=== PATIENT | female | born 1975 | race Caucasian/White ===

== ENCOUNTER 2016-12-08 20:54 | Emergency (ER) | payer MEDICAID, OTHER ==
[~2016-12-08] VITALS: Ht 170.2 cm; Wt 99.8 kg
[~2016-12-08 20:54] MED LIST: CIPR500T78 PO; DICY20TA33 PO; DIPH25CA79 PO; HYDR-1231 PO; IBUP-1780 PO; LORA10TA76 PO; NAPR-243 PO; ONDA8TAB13 PO; OXYC-12 PO; OXYC-197 PO; PHEN200T27 PO
[2016-12-08] MEDS ORDERED: fentaNYL INJECTION 100 MCG/2 ML AMP IVP STA (21:47)
[2016-12-08] MEDS ORDERED: NS IV 1000 ML 1,000 ML IV ONE (21:47)
--- NOTE | 2016-12-08 21:47 | ED Abdominal Pain ---
General Chief Complaint: General Problems/Pain Stated Complaint: CRAMPING,ABD PAIN,RECTAL BLEEDING;HAND PAIN Nursing Triage Note: PT REPORTS SHE HAS BEEN HAVING DIARRHEA WITH BLOOD IN HER STOOLS. SHE ALSO C/O ABD CRAMPING. SHE ALSO STATES SHE WAS MOVING LAST NIGHT AND DROPPED A JAR OF CHANGE ON HER R HAND AND IS C/O R HAND PAIN. Sepsis Screen: No Definite Risk Source of Information: Patient Exam Limitations: No Limitations History of Present Illness Time Seen By Provider: 21:41 Initial Comments Patient presents ER with chief complaint of left lower quadrant abdominal pain and black stools that started today around 6:00 in the afternoon. She then had some bright red blood on tissue when she was wiping. She is not sure she has a history of hemorrhoids. She has had colonoscopy in the past where she had a polyp but denies knowing of any diverticulosis. 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 She also has dropped a jar of change on her right hand and having some swelling tenderness and difficult to moving her fingers. She took half of a hydrocodone at home but this did not help much with her pain. She denies any shortness of breath chest pain, falls, weakness. She is having a little nausea however. She states she took one dose of Pepto-Bismol approximately 2 hours after her diarrhea started this was after her diarrhea was black. Allergies and Home Medications Allergies Coded Allergies: codeine (Unverified Allergy, Severe, 01/11/16) FACIAL SWELLING morphine (Unverified Allergy, Severe, 01/11/16) FACIAL SWELLING Sulfa (Sulfonamide Antibiotics) (Unverified Allergy, Mild, 01/11/16) NAUSEA/VOMITING latex (Verified Allergy, Unknown, 07/15/14) sulfamethoxazole (Unverified Allergy, Unknown, 09/08/15) trimethoprim (Unverified Allergy, Unknown, 09/08/15) Home Medications Ciprofloxacin HCl 500 Mg Tablet, 500 MG PO BID, #20 Ref 0 Prescribed by: VILMA ELIZABETH on 07/15/14 1950 Dicyclomine HCl 20 Mg Tablet, 20 MG PO TID, #15 Ref 0 Prescribed by: VILMA ELIZABETH on 08/11/15 1905 Diphenhydramine HCl 25 Mg Capsule, 25-50 MG PO HS, (Reported) Hydrocodone Bit/Acetaminophen 1 Tab Tablet, 1-2 TAB PO Q6H PRN for PAIN, #15 Prescribed by: YOLANDE STEELE on 12/28/13 2211 Hydrocodone/Acetaminophen 1 Each Tablet, 1 EACH PO Q6H PRN for BREAKTHROUGH PAIN , #30 Ref 0 Prescribed by: LOW CASE on 12/08/16 2330 Ibuprofen 800 Mg Tablet, 800 MG PO Q8H PRN for PAIN, (Reported) Loratadine 10 Mg Tablet, 10 MG PO DAILY, (Reported) Naproxen 500 Mg Tablet, 1 EACH PO TID PRN for PAIN, #20 Ref 0 FOR PAIN Prescribed by: VILMA ELIZABETH on 07/15/141949 Ondansetron 8 Mg Tab.rapdis, 8 MG PO Q6H PRN for NAUSEA/VOMITING, #10 Ref 0 Prescribed by: VILMA ELIZABETH on 07/15/141949 Ondansetron 8 Mg Tab.rapdis, 8 MG PO Q6H PRN for NAUSEA/VOMITING, #10 Ref 0 Prescribed by: VILMA ELIZABETH on 08/11/15 185 Ondansetron 4 Mg Tab.rapdis, 4 MG PO Q6H PRN for NAUSEA/VOMITING-1ST LINE for 14 Days, #20 Ref 0 Prescribed by: LOW CASE on 12/08/16 2330 Oxycodone HCl/Acetaminophen 1 Each Tablet, 1 EACH PO Q4H PRN for PAIN, (Reported ) Phenazopyridine Hcl 200 Mg Tablet, 1 EACH PO TID PRN for SPASMS, #30 Ref 1 Prescribed by: VILMA ELIZABETH on 07/15/141949 Review of Systems Constitutional: No chills, No diaphoresis, No fever, No malaise Respiratory: Denies Cough, Denies Shortness of Air Cardiovascular: Denies Chest Pain, Denies Irregular Heart Rate Gastrointestinal: See HPI, Abdominal Pain, Diarrhea, Nausea, Denies Vomiting Genitourinary: Denies Burning, Denies Discharge Musculoskeletal: No back pain, No joint pain Skin: No pruritus, No rash Psychiatric/Neurological: Denies Headache, Denies Numbness Past Aaoihcv-Ynnjyl-Utmwwd Hx Patient Social History Alcohol Use: Denies Use Recreational Drug Use: No Smoking Status: Never a Smoker 2nd Hand Smoke Exposure: No Recent Foreign Travel: No Contact w/Someone Who Travel: No Recent Infectious Disease Expo: No Recent Hopitalizations: No Immunizations Up To Date Date of Influenza Vaccine: Feb 04, 2014 Seasonal Allergies Seasonal Allergies: No Surgeries HX Surgeries: Yes (TORSION LEFT OVARY REMOVED, RIGHT OVARIAN CYST) Surgeries: Appendectomy, Gallbladder, Oophorectomy Respiratory Hx Respiratory Disorders: No Cardiovascular Hx Cardiac Disorders: No Neurological Hx Neurological Disorders: No Reproductive System Hx Reproductive Disorders: Yes (TORSION OVARY LEFT REMOVED) Female Reproductive Disorders: Endometriosis, Ovarian Cyst Genitourinary Hx Genitourinary Disorders: Yes Genitourinary Disorders: Kidney Stones Gastrointestinal Hx Gastrointestinal Disorders: No Musculoskeletal Hx Musculoskeletal Disorders: No Endocrine Hx Endocrine Disorders: No HEENT HX ENT Disorders: No Cancer Hx Cancer: No Psychosocial Hx Psychiatric Problems: No Integumentary HX Skin/Integumentary Disorder: No Blood Transfusions Hx Blood Disorders: No Adverse Reaction to a Blood Tr: No Family Medical History Significant Family History: No Pertinent Family Hx Physical Exam Vital Signs VS - Last 72 Hours, by Label 12/08/16 21:29 Temp 97.2 Pulse 90 Resp 16 B/P (MAP) 145/86 Pulse Ox 98 O2 Delivery Room Air Capillary Refill : Less Than 3 Seconds General Appearance: WD/WN, mild distress HEENT: PERRL/EOMI, pharynx normal Respiratory: lungs clear, normal breath sounds Cardiovascular: normal peripheral pulses, regular rate, rhythm, no edema Peripheral Pulses: 2+ Dorsalis Pedis (R), 2+ Left Dors-Pedis (L) Gastrointestinal: normal bowel sounds, soft, no organomegaly, no pulsatile mass , tenderness (left side especially left lower quadrant) Rectal: normal exam, normal rectal tone, black stool, No blood streaked stool Extremities: normal inspection, no pedal edema, no calf tenderness, normal capillary refill, swelling (right hand with mild limitation to flexion range of motion secondary to pain and tenderness to soft tissue) Neurologic/Psychiatric: alert, oriented x 3 Skin: normal color, warm/dry Focused Exam Lactic Acid Level Laboratory Tests Test 12/08/16 22:20 Lactic Acid Level 1.31 MMOL/L (0.50-2.00) Progress/Results/Core Measures Results/Orders Lab Results Laboratory Tests Test 12/08/16 22:00 12/08/16 22:20 12/08/16 22:30 Range/Units White Blood Count 11.8 H 4.3-11.0 10^3/uL Red Blood Count 3.94 L 4.35-5.85 10^6/uL Hemoglobin 12.3 11.5-16.0 G/DL Hematocrit 38 35-52 % Mean Corpuscular Volume 95 80-99 FL Mean Corpuscular Hemoglobin 31 25-34 PG Mean Corpuscular Hemoglobin Concent 33 32-36 G/DL Red Cell Distribution Width 13.4 10.0-14.5 % Platelet Count 174 130-400 10^3/uL Mean Platelet Volume 10.8 H 7.4-10.4 FL Neutrophils (%) (Auto) 71 42-75 % Lymphocytes (%) (Auto) 17 12-44 % Monocytes (%) (Auto) 8 0-12 % Eosinophils (%) (Auto) 4 0-10 % Basophils (%) (Auto) 0 0-10 % Neutrophils # (Auto) 8.4 H 1.8-7.8 X 10^3 Lymphocytes # (Auto) 2.0 1.0-4.0 X 10^3 Monocytes # (Auto) 1.0 0.0-1.0 X 10^3 Eosinophils # (Auto) 0.4 H 0.0-0.3 10^3/uL Basophils # (Auto) 0.0 0.0-0.1 10^3/uL Sodium Level 141 135-145 MMOL/L Potassium Level 4.1 3.6-5.0 MMOL/L Chloride Level 107 98-107 MMOL/L Carbon Dioxide Level 21 21-32 MMOL/L Anion Gap 13 5-14 MMOL/L Blood Urea Nitrogen 16 7-18 MG/DL Creatinine 0.66 0.60-1.30 MG/DL Estimat Glomerular Filtration Rate > 60 BUN/Creatinine Ratio 24 Glucose Level 110 H 70-105 MG/DL Calcium Level 9.2 8.5-10.1 MG/DL Total Bilirubin 0.3 0.1-1.0 MG/DL Aspartate Amino Transf (AST/SGOT) 16 5-34 U/L Alanine Aminotransferase (ALT/SGPT) 22 0-55 U/L Alkaline Phosphatase 73 40-136 U/L Total Protein 6.8 6.4-8.2 GM/DL Albumin 4.1 3.2-4.5 GM/DL Lactic Acid Level 1.31 0.50-2.00 MMOL/L Urine Color YELLOW Urine Clarity CLEAR Urine pH 8 5-9 Urine Specific [place] 1.015 L 1.016-1.022 Urine Protein 1+ H NEGATIVE Urine Glucose (UA) NEGATIVE NEGATIVE Urine Ketones NEGATIVE NEGATIVE Urine Nitrite NEGATIVE NEGATIVE Urine Bilirubin NEGATIVE NEGATIVE Urine Urobilinogen NORMAL NORMAL MG/DL Urine Leukocyte Esterase 1+ H NEGATIVE Urine RBC (Auto) NEGATIVE NEGATIVE Urine RBC NONE /HPF Urine WBC 2-5 /HPF Urine Squamous Epithelial Cells 0-2 /HPF Urine Crystals PRESENT H /LPF Urine Amorphous Sediment RARE DEMARCUS PHOSPHATE H /LPF Urine Bacteria FEW H /HPF Urine Casts NONE /LPF Urine Mucus SMALL H /LPF Urine Culture Indicated NO Urine Test NEGATIVE NEGATIVE My Orders Orders - LOW CASE Ct Abdomen/Pelvis Wo (12/08/16 21:47) Comprehensive Metabolic Panel (12/08/16 21:47) Ua Culture If Indicated (12/08/16 21:47) Cbc With Automated Diff (12/08/16 21:47) Fentanyl Injection (Sublimaze Injection (12/08/16 21:47) Saline Lock/Iv-Start (12/08/16 21:47) Ns Iv 1000 Ml (Sodium Chloride 0.9%) (12/08/16 21:47) Ondansetron Injection (Zofran Injectio (12/08/16 22:00) Lactic Acid Analyzer (12/08/16 21:50) Hcg,Qualitative Urine (12/08/16 22:30) Fecal Occult Bedside (12/08/16 22:30) Hand, Right, 3 Views (12/08/16 22:37) Hydrocodone/Apap 5/325 Tablet (Lortab 5 (12/08/16 23:15) Rx-Hydrocodone/Apap 5-325 Mg (Rx-Vicodin (12/08/16 23:45) Rx-Ondansetron Po (Rx-Zofran Po) (12/08/16 23:31) Promethazine Tablet (Phenergan Tablet) (12/09/16 00:15) Medications Given in ED Current Medications Medications Dose Ordered Sig/Gosia Route Start Time Stop Time Status Last Admin Dose Admin Acetaminophen/ Hydrocodone Bitart 1 tab ONCE ONCE PO 12/08/16 23:15 12/08/16 23:16 DC 12/08/16 23:20 1 TAB Acetaminophen/ Hydrocodone Bitart 2 ea Q6H PRN PO 12/08/16 23:45 12/08/16 23:56 2 EA Ondansetron HCl 4 mg ONCE ONCE IVP 12/08/16 22:00 12/08/16 22:01 DC 12/08/16 22:20 4 MG Sodium Chloride 1,000 ml @ 0 mls/hr Q0M ONCE IV 12/08/16 21:47 12/08/16 21:51 DC 12/08/16 22:20 0 MLS/HR Vital Signs/I&O Vital Sign - Last 12Hours 12/08/16 21:29 Temp 97.2 Pulse 90 Resp 16 B/P (MAP) 145/86 Pulse Ox 98 O2 Delivery Room Air Blood Pressure Mean: 105 Progress Note #1: Time: 21:54 Progress Note Diverticulosis versus possible Gyne? patient is perimenopausal. We'll get some basic labs to look for ischemic bowel, infectious, urinalysis, and then get a CT of her abdomen without contrast. Progress Note #2: Time: 23:24 Progress Note Fourth metacarpal fracture in the diaphysis. We'll splint her and have her follow-up for states or so Sunday. We'll send her home nausea and opiate meds. Unremarkable CT scan. Diagnostic Imaging Diagonstic Imaging: CT Plain Films/CT/US/NM/MRI: abdomen (pelvis without) Comments Unremarkable abdomen with gallbladder missing. Hepatic steatosis, prior cholecystectomy, borderline prominent intra-water cable nodes nonspecific. Pelvic structures are within normal limits. post left nephrectomy Reviewed: Reviewed by Me Diagonstic Imaging: Xray Plain Films/CT/US/NM/MRI: hand (right) Comments Right fourth corporal diaphysis fracture closed. Reviewed: Reviewed by Me Departure Impression Impression: Primary Impression: Left lower quadrant abdominal pain of unknown etiology Additional Impression: Fracture of metacarpal of right hand, closed Qualified Codes: S62.354A - Nondisplaced fracture of shaft of fourth metacarpal bone, right hand, initial encounter for closed fracture Disposition: HOME, SELF-CARE Condition: Stable Departure-Patient Inst. Decision time for Depature: 00:05 Referrals: NO,LOCAL PHYSICIAN (PCP/Family) Primary Care Physician Patient Instructions: Acute Abdomen (Belly Pain), Adult (DC), Hand Fracture (DC ) Add. Discharge Instructions: If you're having pain take the pain medicine every 6 hours as needed to control your pain. This pain medicine will cause constipation and confusion. He should be on some kind of a laxative such as MiraLAX every day that you're using pain medicine. Plan to call [place] [facility] at [phone] Sunday morning to set up an appointment. Wear the splint every day. I Do not see an obvious reason for your left lower quadrant abdominal pain at this time. Make sure you're using a laxative to stay regular while on the opiates. If your pain worsens or presents with new worrisome symptoms such as fever you should return to the ER otherwise plan on making an appointment next week with your primary doctor to work this up. If you're having nausea you can take the Zofran under the tongue every 6 hours. All discharge instructions reviewed with patient and/or family. Voiced understanding. Scripts Ondansetron (Zofran Odt) 4 Mg Tab.rapdis 4 MG PO Q6H Y for NAUSEA/VOMITING-1ST LINE for 14 Days, #20 TAB 0 Refills Prov: LOW CASE 12/08/16 Hydrocodone/Acetaminophen (Hydrocodon-Acetaminophn 10-325) 1 Each Tablet 1 EACH PO Q6H Y for BREAKTHROUGH PAIN, #30 TAB 0 Refills Prov: LOW CASE 12/08/16 LOW CASE Dec 08, 2016 21:47
[2016-12-08] MEDS ORDERED: ONDANSETRON 4 MG/2 ML (SDV) Z0FRAN IVP ONE (22:00)
[2016-12-08 22:04] LABS: BASOPHILS % (AUTO) 0 % (0-10); EOSINOPHILS # (AUTO) 0.4 10^3/uL (0.0-0.3); EOSINOPHILS % (AUTO) 4 % (0-10); LYMPHOCYTES % (AUTO) 17 % (12-44); MEAN CORPUSCULAR HEMOGLOBIN 31 PG (25-34); MEAN CORPUSCULAR HGB CONC 33 G/DL (32-36); MEAN CORPUSCULAR VOLUME 95 FL (80-99); MEAN PLATELET VOLUME 10.8 FL (7.4-10.4); MONOCYTES % (AUTO) 8 % (0-12); NEUTROPHILS # (AUTO) 8.4 X 10^3 (1.8-7.8); NEUTROPHILS % (AUTO) 71 % (42-75); PLATELET COUNT 174 10^3/uL (130-400); RED BLOOD COUNT 3.94 10^6/uL (4.35-5.85); RED CELL DISTRIBUTION WIDTH 13.4 % (10.0-14.5); WHITE BLOOD COUNT 11.8 10^3/uL (4.3-11.0)
[2016-12-08 22:21] LABS: ALANINE AMINOTRANSFERASE 22 U/L (0-55); ALBUMIN 4.1 GM/DL (3.2-4.5); ANION GAP 13 MMOL/L (5-14); ASPARTATE AMINO TRANSFERASE 16 U/L (5-34); BILIRUBIN,TOTAL 0.3 MG/DL (0.1-1.0); BLOOD UREA NITROGEN 16 MG/DL (7-18); BUN/CREATININE RATIO 24; CALCIUM 9.2 MG/DL (8.5-10.1); CARBON DIOXIDE 21 MMOL/L (21-32); CHLORIDE 107 MMOL/L (98-107); CREATININE SERUM 0.66 MG/DL (0.60-1.30); GFR ESTIMATED > 60; GLUCOSE 110 MG/DL (70-105); POTASSIUM 4.1 MMOL/L (3.6-5.0); SODIUM 141 MMOL/L (135-145); TOTAL PROTEIN 6.8 GM/DL (6.4-8.2)
[2016-12-08 22:44] LABS: BILIRUBIN,URINE NEGATIVE (NEGATIVE); KETONES,URINE NEGATIVE (NEGATIVE); LEUKOCYTE ESTERASE ,URINE 1+ (NEGATIVE); NITRITE,URINE NEGATIVE (NEGATIVE); PH,URINE 8 (5-9); PROTEIN,URINE 1+ (NEGATIVE); UROBILINOGEN,URINE NORMAL (NORMAL)
[2016-12-08 22:53] LABS: SQUAMOUS EPITHELIAL CELL,UR 0-2 /HPF
[2016-12-08] MEDS ORDERED: HYDROcodone/APAP 5 MG/325 MG (LORTAB) TAB PO ONE (23:15)
[2016-12-08] MEDS ORDERED: HYDR-3820 PO (23:30)
[2016-12-08] MEDS ORDERED: ONDA4TAB8 PO (23:30)
[2016-12-08] MEDS ORDERED: RX-ONDANSETRON 4 MG ODT (ZOFRAN) PPK #4 PO STA (23:31)
[2016-12-08] MEDS ORDERED: RX-HYDROCODONE/APAP 5/325 MG #4 TAB PK PO PRN (23:45)
[2016-12-09] MEDS ORDERED: PROMETHAZINE 25 MG (PHENERGAN) TAB PO ONE (00:15)
[2016-12-09] MEDS ORDERED: HYDROcodone/APAP 7.5 MG/325 MG (LORTAB, LORCET PLUS) TABLET PO ONE (00:15)
[2016-12-09 00:16] VITALS: BP 141/78
--- NOTE | 2016-12-09 07:22 | Diagnostic Imaging Report ---
INDICATION: Trauma. COMPARISON: None. FINDINGS: Three views of the right hand demonstrate minimally displaced midshaft fourth metacarpal fracture. There is no intra-articular involvement. There is no foreign body IMPRESSION: Fourth metacarpal fracture. Dictated by: Dictated on workstation # [id number]
--- NOTE | 2016-12-09 07:36 | Diagnostic Imaging Report ---
PROCEDURE: CT abdomen and pelvis without contrast. TECHNIQUE: Multiple contiguous axial images were obtained through the abdomen and pelvis without the use of intravenous contrast. INDICATION: Abdominal pain, cramping. COMPARISON: 09/08/2015 FINDINGS: The lung bases are clear. The gallbladder is surgically absent. There is mild fatty liver. The spleen, pancreas, adrenal glands and right kidney are unremarkable. Nonobstructive stones are seen in the upper or lower poles of the left kidney. There is no hydronephrosis or hydroureter. Exophytic 8 mm lesion is seen in the upper pole of the left kidney which is stable and likely benign. Course and caliber in the large and small bowel are normal. The appendix is surgically absent. There is no free air or free fluid. Reproductive organs are intact. Distal ureters and urinary bladder are normal. There is no inflammation. Osseous structures are normal. IMPRESSION: 1. Two separate 1-2 mm nonobstructive stones in the left kidney. 2. Surgically absent gallbladder and appendix. 3. The remainder of the abdomen and pelvis is within normal limits. Dictated by: Dictated on workstation # [id number]
== END 2016-12-09 00:16 | disposition home or self-care (01) ==
LOC: EDUNIT# 20:54 → ER 20:56
DX: S62.324A Displaced fracture of shaft of fourth metacarpal bone, right hand, initial encounter for closed fracture (principal); R10.32 Left lower quadrant pain; Z90.721 Acquired absence of ovaries, unilateral; Z90.49 Acquired absence of other specified parts of digestive tract; Z87.42 Personal history of other diseases of the female genital tract; Z87.442 Personal history of urinary calculi; W20.8XXA Other cause of strike by thrown, projected or falling object, initial encounter
CPT/HCPCS: 36415; 73130; 74176; 80053; 81000; 83605; 84703; 85025; 96361; 96374; 96375